=== PATIENT | female | born 1990 | race African-American/Black ===

== ENCOUNTER 2016-06-19 09:30 | Emergency (ER) | payer OTHER ==
[~2016-06-19] VITALS: Ht 147.3 cm; Wt 54.0 kg
[~2016-06-19 09:30] MED LIST: IBUP600 PO; OXYC1SOL5 PO; PERI8.6T PO; PREN0.01 PO; ZOFR4TAB3 SL
[2016-06-19 09:31] VITALS: BP 142/85; PULSE 98; RESP 14; TEMP 98.7; O2SAT 97
[2016-06-19] MEDS ORDERED: ACETAMINOPHEN 325 MG TAB PO ONE (10:00)
[2016-06-19] MEDS ORDERED: SODIUM CHLOR 0.9% 1000 ML INJ 1,000 ML IV ONE (10:00)
[2016-06-19 11:01] LABS: AUTOMATED NEUTROPHIL # 4.5 TH/MM3 (1.8-7.7); BASOPHIL % 0.3 % (0.0-2.0); EOSINOPHIL # 0.1 TH/MM3 (0-0.4); EOSINOPHIL % 1.1 % (0.0-4.0); HEMATOCRIT 34.7 % (35.0-46.0); HEMO FLAGS DIFF FINAL; LYMPH % 25.6 % (9.0-44.0); LYMPHOCYTE # 1.7 TH/MM3 (1.0-4.8); MEAN CELL VOLUME 87.2 FL (80.0-100.0); MEAN CORPUSCULAR HEMOGLOBIN 28.5 PG (27.0-34.0); MEAN CORPUSCULAR HGB CONC 32.6 % (32.0-36.0); MONO % 7.1 % (0.0-8.0); NEUT % 65.9 % (16.0-70.0); PLATELET COUNT 292 TH/MM3 (150-450); RED BLOOD COUNT 3.98 MIL/MM3 (4.00-5.30); WHITE BLOOD COUNT 6.8 TH/MM3 (4.0-11.0)
[2016-06-19 11:06] LABS: ALT (GPT) 15 U/L (10-53); ANION GAP 8 MEQ/L (5-15); AST (GOT) 13 U/L (15-37); BICARBONATE 24.9 MEQ/L (21.0-32.0); BLOOD UREA NITROGEN 11 MG/DL (7-18); CHLORIDE 105 MEQ/L (98-107); GLOMERULAR FILTRATION RATE 113 ML/MIN (>89); POTASSIUM 3.8 MEQ/L (3.5-5.1); SODIUM (NA) 138 MEQ/L (136-145)
[2016-06-19 11:10] LABS: ALKALINE PHOSPHATASE 66 U/L (45-117); BETA HCG QUANT 939 MIU/ML (0-5); TOTAL BILIRUBIN ADULT 0.3 MG/DL (0.2-1.0)
[2016-06-19 11:16] LABS: BACTERIA, URINE FEW /hpf; BLOOD, URINE MOD (NEG); COMMENT (UR) CULTURE INDICATED; CULTURE IF INDICATED CULTURE INDICATED; GLUCOSE,URINE NEG (NEG); KETONE, URINE NEG (NEG); MUCUS URINE FEW /lpf (OCC); NITRITE,URINE NEG (NEG); PH, URINE 6.5 (5.0-8.5); SQUAMOUS EPITHELIAL CELL URINE 2 /hpf (0-5); URINE COLOR YELLOW (YELLW/STRAW)
--- NOTE | 2016-06-19 11:28 | PD ---
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 She says that she had a positive test a few weeks ago, LMP in March. She says that a week ago she had an episode of heavy vaginal bleeding and passed several clots. She says she thought she was having a miscarriage at the time. She says since then she has had a sharp right sided pain and this foul smelling discharge. She did not think anything of it until she looked it up on the internet and became concerned about retained products. She denies fever or chills. She says she occasionally feels lightheaded. She denies chest pain or SOB. PFSH Past Medical History Diminished Hearing: No Hypertension: Yes (DURING ) Immunizations Current: Yes Tetanus Vaccination: < 5 Years Influenza Vaccination: No ?: LMP: 04/01/16 : 2 Para: 1 Miscarriage: 1 : 1 Past Surgical History Section: Yes Other Surgery: Yes (REMOVAL BREAST CYST) Social History Alcohol Use: No Tobacco Use: No Substance Use: No Allergies-Medications (Allergen,Severity, Reaction): Coded Allergies: No Known Allergies (Verified , 11/24/14) Reported Meds & Prescriptions Reported Meds & Active Scripts Active Review of Systems Except as stated in HPI: all other systems reviewed are Neg General / Constitutional: No: Fever, Chills HENT: No: Headaches, Lightheadedness Cardiovascular: No: Chest Pain or Discomfort Respiratory: No: Shortness of Breath Gastrointestinal: Positive: Abdominal Pain, No: Nausea, Vomiting Genitourinary: Positive: Discharge, No: Dysuria Musculoskeletal: No: Myalgias, Arthralgias Skin: No Rash, No Change in Pigmentation Neurologic: No: Weakness, Dizziness Physical Exam Narrative GENERAL: Awake and alert, in no acute distress. SKIN: Focused skin assessment warm/dry. HEAD: Atraumatic. Normocephalic. EYES: Pupils equal and round. No scleral icterus. ENT: Mucous membranes pink and moist. NECK: Trachea midline. No JVD. CARDIOVASCULAR: Regular rate and rhythm. No murmur appreciated. RESPIRATORY: No accessory muscle use. Clear to auscultation. Breath sounds equal bilaterally. GASTROINTESTINAL: Abdomen soft, non-tender, nondistended. : performed in the presence of female nurse, Diane. Malodorous yellowish discharge. No CMT. MUSCULOSKELETAL: No obvious deformities. No clubbing. No cyanosis. No edema. NEUROLOGICAL: Awake and alert. No obvious cranial nerve deficits. Motor grossly within normal limits. Normal speech. PSYCHIATRIC: Appropriate mood and affect; insight and judgment normal. Data Data Last Documented VS Vital Signs Date Time Temp Pulse Resp B/P Pulse Ox O2 Delivery O2 Flow Rate FiO2 06/19/16 09:31 98.7 98 14 142/85 97 Orders Complete Blood Count With Diff (06/19/16 09:55) Comprehensive Metabolic Panel (06/19/16 09:55) Beta Hcg (Quant/Titer) (06/19/16 09:55) Urinalysis - C+S If Indicated (06/19/16 09:55) Ed Urine Pregnancytest Poc (06/19/16 09:55) Sodium Chlor 0.9% 1000 Ml Inj (Ns 1000 M (06/19/16 10:00) Acetaminophen (Tylenol) (06/19/16 10:00) Wet Prep Profile (06/19/16 10:12) Gc And Chlamydia Pcr (06/19/16 10:12) Urine Culture (06/19/16 10:11) Us Pelvis (Ques Pr/Ect)W Trans (06/19/16 ) Labs Laboratory Tests Test 06/19/16 06/19/16 10:11 10:15 Urine Color YELLOW Urine Turbidity CLEAR Urine pH 6.5 Urine Specific [place] 1.026 Urine Protein TRACE mg/dL Urine Glucose (UA) NEG mg/dL Urine Ketones NEG mg/dL Urine Occult Blood MOD Urine Nitrite NEG Urine Bilirubin NEG Urine Urobilinogen LESS THAN 2.0 MG/DL Urine Leukocyte Esterase LARGE Urine RBC 1 /hpf Urine WBC 22 /hpf Urine WBC Clumps RARE Urine Squamous Epithelial 2 /hpf Cells Urine Bacteria FEW /hpf Urine Mucus FEW /lpf Microscopic Urinalysis Comment CULTURE INDICATED White Blood Count 6.8 TH/MM3 Red Blood Count 3.98 MIL/MM3 Hemoglobin 11.3 GM/DL Hematocrit 34.7 % Mean Corpuscular Volume 87.2 FL Mean Corpuscular Hemoglobin 28.5 PG Mean Corpuscular Hemoglobin 32.6 % Concent Red Cell Distribution Width 14.0 % Platelet Count 292 TH/MM3 Mean Platelet Volume 8.1 FL Neutrophils (%) (Auto) 65.9 % Lymphocytes (%) (Auto) 25.6 % Monocytes (%) (Auto) 7.1 % Eosinophils (%) (Auto) 1.1 % Basophils (%) (Auto) 0.3 % Neutrophils # (Auto) 4.5 TH/MM3 Lymphocytes # (Auto) 1.7 TH/MM3 Monocytes # (Auto) 0.5 TH/MM3 Eosinophils # (Auto) 0.1 TH/MM3 Basophils # (Auto) 0.0 TH/MM3 CBC Comment DIFF FINAL Differential Comment Clue Cells (Wet Prep) PRESENT Vaginal Trichomonas (Wet Prep) NONE SEEN Vaginal Yeast (Wet Prep) NONE SEEN Sodium Level 138 MEQ/L Potassium Level 3.8 MEQ/L Chloride Level 105 MEQ/L Carbon Dioxide Level 24.9 MEQ/L Anion Gap 8 MEQ/L Blood Urea Nitrogen 11 MG/DL Creatinine 0.75 MG/DL Estimat Glomerular Filtration 113 ML/MIN Rate Random Glucose 99 MG/DL Calcium Level 8.9 MG/DL Total Bilirubin 0.3 MG/DL Aspartate Amino Transf 13 U/L (AST/SGOT) Alanine Aminotransferase 15 U/L (ALT/SGPT) Alkaline Phosphatase 66 U/L Total Protein 7.3 GM/DL Albumin 3.4 GM/DL Human Chorionic Gonadotropin, 939 MIU/ML Quant Chlamydia trachomatis DNA NOT DETECTED (PCR) Neisseria gonorrhoeae DNA NOT DETECTED (PCR) MDM Medical Decision Making Medical Screen Exam Complete: Yes Emergency Medical Condition: Yes Medical Record Reviewed: Yes Differential Diagnosis retained products vs ectopic vs endometritis Narrative Course Patient is a 25 year old female who comes in complaining of abdominal pain and vaginal discharge. Exam shows malodorous discharge, no CMT. IV established, labs sent. Labs show clue cells in her wet prep and WBCs in her urine. US performed shows heterogenous uterus, no IUP or retained products. Beta HCG is 939 today. Patient advised to have testing repeated in 2 days. Advised to follow up with public safety teacher. Advised to take all of her antibiotics and avoid alcohol use while taking the antibiotics. Advised to return to the ED as needed for any worsening symptoms. Diagnosis Primary Impression: Bacterial vaginosis Additional Impression: UTI (urinary tract infection) Qualified Code: N30.00 - Acute cystitis without hematuria Patient Instructions: Bacterial Vaginosis (ED), General Instructions Additional Instructions: Return in 2 days for repeat testing. Take all of your antibiotics. Avoid alcohol while taking these antibiotics as it will make you very sick. Return to the ED as needed for any worsening symptoms. Scripts Nitrofurantoin Monohydrate Macrocrystals (Macrobid)100 Mg [id number] Mg PO BID 5 Days Ref 0 Prov:Lina Murray MD 06/19/16 Metronidazole (Flagyl)500 Mg [id number] Mg PO BID 7 Days Ref 0 Prov:Lina Murray MD 06/19/16 Disposition: 01 DISCHARGE HOME Condition: Stable Lina Murray MD June 19, 2016 11:28
[2016-06-19 12:48] LABS: CHLAMYDIA PCR NOT DETECTED (NOT DETECT); NEISSERIA PCR NOT DETECTED (NOT DETECT)
--- NOTE | 2016-06-19 14:20 | RADRPT ---
EXAM DATE/TIME: 06/19/2016 13:25 [facility] COMPARISON: No previous studies available for comparison. INDICATIONS : Pelvic pains and vaginal bleeding. LAB(S): Beta-hC MEDICAL HISTORY : Hypertension. Pelvic pains. SURGICAL HISTORY : section. Breast cyst removal. ENCOUNTER: Initial ACUITY: 2 weeks PAIN SCORE: 0/10 LOCATION: Bilateral pelvis MEASUREMENTS: UTERUS: 7.9 x 6.0 x 4.2 cm ENDOMETRIAL STRIPE: 6 mm RIGHT OVARY: 2.2 x 2.1 x 1.7 cm LEFT OVARY: 2.7 x 2.1 x 1.3 cm FINDINGS: UTERUS: The myometrium has homogeneous echotexture without mass. There is a section scar at the ant erior lower uterine segment. The endometrium is very heterogeneous in echotexture and measures 6 mm i n thickness. There is a cystic area within the endometrium measuring 6 x 3 mm. RIGHT OVARY: Ovary contains no mass or significant cystic lesion. Follicles are present. LEFT OVARY: Ovary contains no mass or significant cystic lesion. Follicles are present. MISCELLANEOUS: No free fluid. CONCLUSION: 1. There are no findings to indicate a definite intrauterine . A nonspecific 6 mm cystic str ucture is visualized within the endometrial cavity. Based on history provided the patient reports los s of 2 weeks ago with continued bleeding. I do not see any findings to definitively indicat e retained products of conception. Suggest clinical followup and followup beta-hCG to a normal level. Consider ultrasound followup, as needed. 2. There is no free fluid in the pelvis and ovaries have a normal appearance. Yeison Galan MD on June 19, 2016 at 14:14 Board Certified Radiologist. This report was verified electronically.
[2016-06-19] MEDS ORDERED: MACR100C2 PO (14:33)
[2016-06-19] MEDS ORDERED: METR-1 PO (14:33)
== END 2016-06-19 15:06 | disposition home or self-care (01) ==
LOC: NEPD 09:30
DX: N76.0 Acute vaginitis (principal); N30.00 Acute cystitis without hematuria; B96.89 Other specified bacterial agents as the cause of diseases classified elsewhere
CPT/HCPCS: 76700; 76817; 80053; 81001; 84702; 84703; 85025; 87086; 87210; 87491; 87591; 96360; 96361; 99284; J7030

== ENCOUNTER 2017-07-25 15:58 | Emergency (ER) | payer SELFPAY ==
[~2017-07-25] VITALS: Ht 149.9 cm; Wt 56.0 kg
[~2017-07-25 15:58] MED LIST changes: -IBUP600 PO; +MACR100C2 PO; +METR-1 PO; -OXYC1SOL5 PO; -PERI8.6T PO; -PREN0.01 PO; -ZOFR4TAB3 SL
[2017-07-25 16:00] VITALS: BP 138/99; PULSE 109; RESP 18; TEMP 98.3; O2SAT 100
[2017-07-25 16:14] VITALS: BP 121/81; PULSE 96; RESP 18; TEMP 99; O2SAT 100
[2017-07-25] MEDS ORDERED: ASPIRIN 81 MG CHEW TAB PO ONE (16:30)
[2017-07-25] MEDS ORDERED: SODIUM CHLORIDE 0.9% FLUSH 10 ML FLUSH IVF PRN (16:30)
[2017-07-25] MEDS ORDERED: SODIUM CHLORID 0.9% 500 ML INJ 500 ML IV ONE (16:30)
--- NOTE | 2017-07-25 16:59 | RADRPT ---
EXAM DATE: 07/25/2017 4:49 PM EDT AGE/SEX: 26 years / Female INDICATIONS: Chest pain. CLINICAL DATA: This is the patient's initial encounter. Patient reports that signs and symptoms have been present for 4 - 6 days and indicates a pain score of 5/10. MEDICAL/SURGICAL HISTORY: None. None. COMPARISON: No prior exams available for comparison. FINDINGS: PA and lateral views of the chest demonstrate the lungs to be symmetrically aerated without evidence of mass, infiltrate or effusion. The cardiomediastinal contours are unremarkable. Osseous structures are intact. CONCLUSION: No active disease. Electronically signed by: Derek Hooker MD 07/25/2017 4:58 PM EDT
[2017-07-25 17:11] LABS: AUTOMATED NEUTROPHIL # 3.3 TH/MM3 (1.8-7.7); BASOPHIL % 0.6 % (0.0-2.0); EOSINOPHIL # 0.1 TH/MM3 (0-0.4); EOSINOPHIL % 1.7 % (0.0-4.0); HEMATOCRIT 35.5 % (35.0-46.0); LYMPHOCYTE # 2.2 TH/MM3 (1.0-4.8); MEAN CORPUSCULAR HEMOGLOBIN 29.7 PG (27.0-34.0); MEAN CORPUSCULAR HGB CONC 33.7 % (32.0-36.0); MEAN PLATELET VOLUME 8.5 FL (7.0-11.0); MONO % 8.8 % (0.0-8.0); MONOCYTE # 0.5 TH/MM3 (0-0.9); NEUT % 52.9 % (16.0-70.0); PLATELET COUNT 274 TH/MM3 (150-450); RED BLOOD COUNT 4.03 MIL/MM3 (4.00-5.30); RED CELL DISTRIBUTION WIDTH 13.5 % (11.6-17.2); WHITE BLOOD COUNT 6.2 TH/MM3 (4.0-11.0)
[2017-07-25 17:29] LABS: ALBUMIN 3.8 GM/DL (3.4-5.0); ALT (GPT) 19 U/L (10-53); AST (GOT) 14 U/L (15-37); BICARBONATE 26.1 MEQ/L (21.0-32.0); BLOOD UREA NITROGEN 13 MG/DL (7-18); CALCIUM 8.6 MG/DL (8.5-10.1); CHLORIDE 105 MEQ/L (98-107); CREATININE 0.99 MG/DL (0.50-1.00); GLOMERULAR FILTRATION RATE 81 ML/MIN (>89); GLUCOSE,RANDOM 90 MG/DL (74-106); MAGNESIUM 1.9 MG/DL (1.5-2.5); SODIUM (NA) 139 MEQ/L (136-145)
[2017-07-25 17:33] LABS: ALKALINE PHOSPHATASE 57 U/L (45-117); TOTAL BILIRUBIN ADULT 0.3 MG/DL (0.2-1.0); TOTAL PROTEIN 7.7 GM/DL (6.4-8.2); TROPONIN I LESS THAN 0.02 NG/ML (0.02-0.05)
[2017-07-25 17:36] LABS: PROTHROMBIN TIME - PATIENT 10.5 SEC (9.8-11.6)
[2017-07-25 17:38] LABS: D-DIMER LESS THAN 0.19 MG/L FEU (0.00-0.50)
[2017-07-25 17:45] VITALS: RESP 18; O2SAT 100
[2017-07-25 17:47] VITALS: BP_SYST 119; BP_SYST 121; BP_DIAS 72; BP_DIAS 81; PULSE 83
[2017-07-25] MEDS ORDERED: ZANTTAB PO (19:07)
--- NOTE | 2017-07-25 19:07 | PD ---
HPI Chief Complaint: Chest Pain Time Seen by Provider: 16:13 Travel History International Travel<30 days: Yes Contact w/Intl Traveler<30days: Yes Name of Country Traveled to: [place] 07/13/17 Traveled to known affect area: Yes History of Present Illness HPI The patient is a 26-year-old female who presents to the emergency department for chest pain. The patient states the chest pain started on Thursday, is intermittent, occasionally worse after she eats and goes to bed immediately. The chest pain is substernal, described as pressure, and she notes an intermittent headache with associated with the chest pain. She denies any nausea, vomiting, or history of GERD. 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 She denies any history of coronary artery disease, hypertension, hyperlipidemia, diabetes, tobacco use, or significant family medical history for early heart disease. She denies taking control or smoking. She has no previous history of pulmonary embolism or DVT. Symptoms are moderate. She denies any chest wall trauma. [facility] Past Medical History Diminished Hearing: No Hypertension: Yes (DURING ) Immunizations Current: Yes ?: Not LMP: 07/25/17 : 2 Para: 1 Miscarriage: 1 : 1 Past Surgical History Section: Yes Other Surgery: Yes (REMOVAL BREAST CYST) Social History Alcohol Use: Yes (on occasion) Tobacco Use: No Substance Use: No Allergies-Medications (Allergen,Severity, Reaction): Coded Allergies: No Known Allergies (Verified , 11/24/14) Reported Meds & Prescriptions Reported Meds & Active Scripts Active Macrobid (Nitrofurantoin Monoh/Nitrofur Macro) 100 Mg Cap 100 Mg PO BID 5 Days Flagyl (Metronidazole) 500 Mg Tab 500 Mg PO BID 7 Days Review of Systems Except as stated in HPI: all other systems reviewed are Neg HENT: No: Lightheadedness Cardiovascular: Positive: Chest Pain or Discomfort Respiratory: No: Shortness of Breath Gastrointestinal: No: Nausea, Vomiting, Abdominal Pain Musculoskeletal: No: Edema Neurologic: No: Dizziness Physical Exam Narrative GENERAL: Awake, alert, very pleasant 26-year-old female who appears her stated age and is in no acute respiratory distress. SKIN: Focused skin assessment warm/dry. HEAD: Atraumatic. Normocephalic. EYES: Pupils equal and round. No injection or drainage. ENT: No nasal bleeding or discharge. Mucous membranes pink and moist. NECK: Trachea midline. No JVD. CARDIOVASCULAR: Regular rate and rhythm. No murmur appreciated. No tenderness of the sternum. RESPIRATORY: No accessory muscle use. Clear to auscultation. Breath sounds equal bilaterally. GASTROINTESTINAL: Abdomen soft, non-tender, nondistended. No epigastric tenderness. No guarding or rigidity. MUSCULOSKELETAL: No obvious deformities. No clubbing. No cyanosis. No edema. NEUROLOGICAL: Awake and alert. No obvious cranial nerve deficits. Motor grossly within normal limits. Normal speech. PSYCHIATRIC: Appropriate mood and affect; insight and judgment normal. Data Data Last Documented VS Vital Signs Date Time Temp Pulse Resp B/P (MAP) Pulse Ox O2 Delivery O2 Flow Rate FiO2 07/25/17 17:47 83 121/81 (94) 119/72 (88) 07/25/17 17:45 18 100 Room Air 07/25/17 16:14 99.0 Orders Orders Electrocardiogram (07/25/17 16:30) B-Type Natriuretic Peptide (07/25/17 16:30) Ckmb (Isoenzyme) Profile (07/25/17 16:30) Complete Blood Count With Diff (07/25/17 16:30) Comprehensive Metabolic Panel (07/25/17 16:30) D-Dimer (07/25/17 16:30) Magnesium (Mg) (07/25/17 16:30) Prothrombin Time / Inr (Pt) (07/25/17 16:30) Act Partial Throm Time (Ptt) (07/25/17 16:30) Troponin I (07/25/17 16:30) Lipase (07/25/17 16:30) Ecg Monitoring (07/25/17 16:30) Bilateral Bp Monitoring (07/25/17 16:30) Iv Access Insert/Monitor (07/25/17 16:30) Oximetry (07/25/17 16:30) Oxygen Administration (07/25/17 16:30) Aspirin Chew (Aspirin Chew) (07/25/17 16:30) Sodium Chloride 0.9% Flush (Ns Flush) (07/25/17 16:30) Sodium Chlorid 0.9% 500 Ml Inj (Ns 500 M (07/25/17 16:30) Chest, Pa & Lat (07/25/17 16:30) Ed Urine Pregnancytest Poc (07/25/17 16:30) CKMB (07/25/17 16:52) CKMB% (07/25/17 16:52) Labs Laboratory Tests Test 07/25/17 16:52 White Blood Count 6.2 TH/MM3 Red Blood Count 4.03 MIL/MM3 Hemoglobin 12.0 GM/DL Hematocrit 35.5 % Mean Corpuscular Volume 88.0 FL Mean Corpuscular Hemoglobin 29.7 PG Mean Corpuscular Hemoglobin Concent 33.7 % Red Cell Distribution Width 13.5 % Platelet Count 274 TH/MM3 Mean Platelet Volume 8.5 FL Neutrophils (%) (Auto) 52.9 % Lymphocytes (%) (Auto) 36.0 % Monocytes (%) (Auto) 8.8 % Eosinophils (%) (Auto) 1.7 % Basophils (%) (Auto) 0.6 % Neutrophils # (Auto) 3.3 TH/MM3 Lymphocytes # (Auto) 2.2 TH/MM3 Monocytes # (Auto) 0.5 TH/MM3 Eosinophils # (Auto) 0.1 TH/MM3 Basophils # (Auto) 0.0 TH/MM3 CBC Comment DIFF FINAL Differential Comment Prothrombin Time 10.5 SEC Prothromb Time International Ratio 1.0 RATIO Activated Partial Thromboplast Time 27.1 SEC D-Dimer Quantitative (PE/DVT) LESS THAN 0.19 MG/L FEU Blood Urea Nitrogen 13 MG/DL Creatinine 0.99 MG/DL Random Glucose 90 MG/DL Total Protein 7.7 GM/DL Albumin 3.8 GM/DL Calcium Level 8.6 MG/DL Magnesium Level 1.9 MG/DL Alkaline Phosphatase 57 U/L Aspartate Amino Transf (AST/SGOT) 14 U/L Alanine Aminotransferase (ALT/SGPT) 19 U/L Total Bilirubin 0.3 MG/DL Sodium Level 139 MEQ/L Potassium Level 3.8 MEQ/L Chloride Level 105 MEQ/L Carbon Dioxide Level 26.1 MEQ/L Anion Gap 8 MEQ/L Estimat Glomerular Filtration Rate 81 ML/MIN Total Creatine Kinase 143 U/L Creatine Kinase MB 0.9 NG/ML Troponin I LESS THAN 0.02 NG/ML Lipase 105 U/L MDM Medical Decision Making Medical Screen Exam Complete: Yes Emergency Medical Condition: Yes Medical Record Reviewed: Yes Interpretation(s) EKG reveals sinus tachycardia with a heart rate of 102. No ischemic changes or ectopy noted. Last Impressions Chest X-Ray 07/25/17 1630 Signed Impressions: CONCLUSION: No active disease. Laboratory Tests Test 07/25/17 16:52 White Blood Count 6.2 TH/MM3 Red Blood Count 4.03 MIL/MM3 Hemoglobin 12.0 GM/DL Hematocrit 35.5 % Mean Corpuscular Volume 88.0 FL Mean Corpuscular Hemoglobin 29.7 PG Mean Corpuscular Hemoglobin Concent 33.7 % Red Cell Distribution Width 13.5 % Platelet Count 274 TH/MM3 Mean Platelet Volume 8.5 FL Neutrophils (%) (Auto) 52.9 % Lymphocytes (%) (Auto) 36.0 % Monocytes (%) (Auto) 8.8 % Eosinophils (%) (Auto) 1.7 % Basophils (%) (Auto) 0.6 % Neutrophils # (Auto) 3.3 TH/MM3 Lymphocytes # (Auto) 2.2 TH/MM3 Monocytes # (Auto) 0.5 TH/MM3 Eosinophils # (Auto) 0.1 TH/MM3 Basophils # (Auto) 0.0 TH/MM3 CBC Comment DIFF FINAL Differential Comment Prothrombin Time 10.5 SEC Prothromb Time International Ratio 1.0 RATIO Activated Partial Thromboplast Time 27.1 SEC D-Dimer Quantitative (PE/DVT) LESS THAN 0.19 MG/L FEU Blood Urea Nitrogen 13 MG/DL Creatinine 0.99 MG/DL Random Glucose 90 MG/DL Total Protein 7.7 GM/DL Albumin 3.8 GM/DL Calcium Level 8.6 MG/DL Magnesium Level 1.9 MG/DL Alkaline Phosphatase 57 U/L Aspartate Amino Transf (AST/SGOT) 14 U/L Alanine Aminotransferase (ALT/SGPT) 19 U/L Total Bilirubin 0.3 MG/DL Sodium Level 139 MEQ/L Potassium Level 3.8 MEQ/L Chloride Level 105 MEQ/L Carbon Dioxide Level 26.1 MEQ/L Anion Gap 8 MEQ/L Estimat Glomerular Filtration Rate 81 ML/MIN Total Creatine Kinase 143 U/L Creatine Kinase MB 0.9 NG/ML Troponin I LESS THAN 0.02 NG/ML Lipase 105 U/L Differential Diagnosis Differential diagnosis includes acute coronary syndrome, STEMI, pericarditis, myocarditis, esophageal spasm, GERD, pulmonary embolism, pleural effusion, pneumonia, referred pain, pancreatitis. Narrative Course IV was established, labs are drawn and sent, and the patient was placed on cardiac telemetry monitoring and continuous pulse oximetry monitoring. EKG was ordered and interpreted. D-dimer was sent to lab, was less than 0.19, therefore , no indication for CT pulmonary angiogram. Chest x-ray is unremarkable. EKG does not reveal any evidence of pericarditis. Troponin and CPK are unremarkable , doubt myocarditis. The patient may have reflux type symptoms that she does eat and then lie supine. The patient will be placed on Zantac twice a day and is advised to eat and then remain sitting upwards for approximately 30-45 minutes. She is also advised to stop the peppermint experiment. Follow-up with a primary physician or return if symptoms worsen or progress. Patient agrees and understands. Diagnosis Primary Impression: Atypical chest pain Additional Impression: GERD (gastroesophageal reflux disease) Qualified Codes: K21.9 - Gastro-esophageal reflux disease without esophagitis Patient Instructions: General Instructions Additional Instructions: Zantac as directed. Sit upright after eating for 30-45 minutes. Decrease peppermint experiment use. Follow-up with your primary physician. Return if symptoms worsen or progress. Med/Other Pt SpecificInfo: Prescription(s) given Scripts Ranitidine (Zantac 150 Maximum Strength) 150 Mg Tab 150 MG PO BID, #30 TAB Prov: Amari Do MD 07/25/17 Disposition: 01 DISCHARGE HOME Condition: Stable Amari Do MD Jul 25, 2017 19:07
--- NOTE | 2017-07-26 14:44 | EKG ---
Date Performed: 07/25/2017 Time Performed: 15:10:27 PTAGE: 26 years EKG: SINUS TACHYCARDIA POSSIBLE LEFT ATRIAL ENLARGEMENT POSSIBLE RIGHT VENTRICULAR CONDUCTION DE LAY ABNORMAL RHYTHM ECG INTERPRETATION BASED ON A DEFAULT AGE OF 40 YEARS NO PREVIOUS TRACING DOCTOR: Puma Pedraza Interpretating Date/Time 07/26/2017 14:40:34
== END 2017-07-25 19:58 | disposition home or self-care (01) ==
LOC: NEPE 15:58
DX: R07.89 Other chest pain (principal); K21.9 Gastro-esophageal reflux disease without esophagitis; R51 Headache; R00.0 Tachycardia, unspecified; R94.31 Abnormal electrocardiogram [ECG] [EKG]
CPT/HCPCS: 71046; 80053; 82550; 82552; 83690; 83735; 83880; 84484; 85025; 85379; 85610; 85730; 93005; 99285; J7040